=== PATIENT | male | born 1995 | race Caucasian/White ===

== ENCOUNTER 2016-08-21 17:54 | Emergency (ER) | payer OTHER, SELFPAY ==
[2016-08-21] MEDS ORDERED: Acetaminophen 500 MG TAB ONE (18:21)
[2016-08-21] MEDS ORDERED: Ibuprofen 800 MG TAB ONE (18:30)
[2016-08-21] MEDS ORDERED: HYDROcodone/Acetaminophen 10/325 mg Tablet ONE (19:26)
[2016-08-21] MEDS ORDERED: Benzonatate 100 MG CAP ONE (19:27)
[2016-08-21] MEDS ORDERED: Oseltamivir 75 MG CAP ONE (19:27)
[2016-08-21] MEDS ORDERED: Naproxen 500 MG TAB ONE (19:27)
== END 2016-08-21 19:45 | disposition home or self-care (01) ==
LOC: MADERS 17:54
DX: J11.1 Influenza due to unidentified influenza virus with other respiratory manifestations (principal); H66.92 Otitis media, unspecified, left ear
CPT/HCPCS: 99283